=== PATIENT | female | born 1955 | race Caucasian/White ===

== ENCOUNTER 2023-07-29 20:18 | Inpatient (IN) | payer BC, MEDICARE ==
[~2023-07-29] VITALS: Ht 149.9 cm; Wt 63.6 kg
[2023-07-29 20:39] LABS: BASOPHILS # (AUTO) 0.1 X10'3 (0-0.2); BASOPHILS % (AUTO) 1.5 % (0-1); EOSINOPHILS # (AUTO) 0.2 X10'3 (0-0.9); EOSINOPHILS % (AUTO) 3.9 % (0-6); HEMATOCRIT 39.1 % (35.0-45.0); HEMOGLOBIN 13.2 g/dl (12.0-16.0); LYMPHOCYTES # (AUTO) 1.2 X10'3 (1.1-4.8); LYMPHOCYTES % (AUTO) 19.2 % (21-51); MEAN CORPUSCULAR HGB CONC 33.7 g/dL (33.0-36.5); MEAN PLATELET VOLUME 8.7 FL (7.4-10.4); MONOCYTES # (AUTO) 0.5 X10'3 (0-0.9); NEUTROPHILS # (AUTO) 4.1 X10'3 (1.8-7.7); NEUTROPHILS % (AUTO) 66.4 % (42-75); PLATELET COUNT 263 X10'3 (140-440); RED BLOOD COUNT 4.12 X10'6 (4.20-5.60); RED CELL DISTRIBUTION WIDTH 15.6 % (11.5-14.5); WHITE BLOOD COUNT 6.1 X10'3 (4.5-11.0)
[2023-07-29 20:53] LABS: ALANINE AMINOTRANSFERASE 21 U/L (12-78); ALBUMIN 3.7 G/DL (3.4-5.0); ALKALINE PHOSPHATASE 161 IU/L (46-116); ANION GAP 9 (8-16); ASPARTATE AMINO TRANSFERASE 21 U/L (10-37); BILIRUBIN,TOTAL 0.6 MG/DL (0.1-1.0); BLOOD UREA NITROGEN 12 MG/DL (7-18); BUN/CREATININE RATIO 11.4 (10.0-20.0); CALCIUM 8.9 MG/DL (8.5-10.1); CHLORIDE 101 MMOL/L (99-107); CREATININE 1.05 MG/DL (0.40-0.90); GLUCOSE 103 MG/DL (70-104); SODIUM 139 MMOL/L (135-145); TOTAL CARBON DIOXIDE 29.5 MMOL/L (24-32); TOTAL PROTEIN 7.5 G/DL (6.4-8.2); eCRCL 35 ML/MIN; eGFR 52 ML/MIN
[2023-07-29 21:02] LABS: PRO BRAIN NATRIURETIC PEPTIDE 547 PG/ML (0-125)
[2023-07-30] VITALS (9 sets, daily range): BP systolic 131–171; BP diastolic 85–102; PULSE 81–101; RESP 14–26; TEMP 97.9–98.2; O2SAT 94–100
[2023-07-30] MEDS ORDERED: bisacodyl 10mg suppository rectal RC PRN (02:15)
[2023-07-30] MEDS ORDERED: acetaminophen 325mg tablet PO PRN ×2 (02:15)
[2023-07-30] MEDS ORDERED: magnesium hydroxide 30ml (MOM) UD suspension PO PRN (02:15)
[2023-07-30] MEDS ORDERED: acetaminophen 650mg rectal suppository RC PRN (02:15)
[2023-07-30] MEDS ORDERED: morphine 2 MG/ML inj. syringe IV PRN (02:15)
[2023-07-30] MEDS ORDERED: ondansetron/PF 4mg/2ml inj IV PRN (02:15)
[2023-07-30] MEDS ORDERED: diphenhydrAMINE 25mg capsule PO PRN (02:15)
[2023-07-30] MEDS ORDERED: ondansetron 4mg rapidly disintigrating tab PO PRN (02:15)
[2023-07-30] MEDS ORDERED: mag hydrox/Alum hydrox/simeth 30ml oral suspension PO PRN (02:15)
[2023-07-30] MEDS ORDERED: diphenhydrAMINE 50 mg/ml inj IV PRN (02:15)
[2023-07-30] MEDS ORDERED: aminophylline 250mg/10ml inj. IV PRN (02:20)
[2023-07-30] MEDS ORDERED: nitroGLYCERIN 0.4mg SUBLingual tab SL PRN (02:20)
[2023-07-30] MEDS ORDERED: metoprolol tartrate 1mg/ml inj IV PRN (02:20)
[2023-07-30] MEDS ORDERED: regadenoson 0.4mg/5ml syringe IV PRN (02:20)
[2023-07-30] MEDS: sodium chloride 0.45% 1,000 ML IV SCH ×3 (02:43→22:15)
[2023-07-30] MEDS: pantoprazole 40mg Tablet.DR PO SCH ×2 (07:30→09:17)
[2023-07-30] MEDS: lisinopril 10 MG tablet PO SCH ×2 (08:00→10:37)
[2023-07-30] MEDS: atorvastatin 20mg tablet PO SCH ×2 (08:00→09:16)
[2023-07-30] MEDS: carVEDilol 3.125mg tablet PO SCH ×2 (08:00→20:00)
[2023-07-30 08:45] LABS: APTT 31 SECONDS (22-32); D-DIMER 0.34 MG/L FEU (0-0.50); PROTHROMBIN TIME 10.9 SECONDS (9.0-12.0)
[2023-07-30 09:09] LABS: PHOSPHORUS 4.4 MG/DL (2.3-4.5)
[2023-07-30] MEDS: aspirin 81mg tab.chew PO SCH ×2 (09:16→10:36)
[2023-07-30] MEDS: heparin, porcine 5000 units/ml vial SQ SCH ×2 (09:16→20:05)
[2023-07-30] MEDS: docusate sod 100mg capsule PO SCH ×3 (09:16→20:00)
[2023-07-30 09:20] LABS: HEMOGLOBIN A1C 5.3 % (4.5-6.2)
[2023-07-30] MEDS: nitroGLYCERIN 0.2mg/hour patch TD SCH (10:35)
[2023-07-30] MEDS: nicotine 14mg patch - 24hr TD SCH (10:37)
[2023-07-30] MEDS: HYDROcodone/acetaminophen 5mg/325mg tablet PO PRN (20:00)
[2023-07-30] MEDS ORDERED: temazepam 15mg capsule PO PRN (21:00)
[2023-07-31] MEDS: HYDROcodone/acetaminophen 5mg/325mg tablet PO PRN (06:05)
[2023-07-31 06:52] LABS: BASOPHILS # (AUTO) 0.1 X10'3 (0-0.2); BASOPHILS % (AUTO) 1.1 % (0-1); EOSINOPHILS # (AUTO) 0.2 X10'3 (0-0.9); EOSINOPHILS % (AUTO) 3.6 % (0-6); HEMATOCRIT 38.9 % (35.0-45.0); LYMPHOCYTES # (AUTO) 1.1 X10'3 (1.1-4.8); LYMPHOCYTES % (AUTO) 19.7 % (21-51); MEAN CORPUSCULAR HEMOGLOBIN 31.7 PG (27.0-31.0); MEAN CORPUSCULAR HGB CONC 33.3 g/dL (33.0-36.5); MEAN CORPUSCULAR VOLUME 95.2 FL (78-98); MEAN PLATELET VOLUME 8.8 FL (7.4-10.4); MONOCYTES # (AUTO) 0.6 X10'3 (0-0.9); MONOCYTES % (AUTO) 11.3 % (2-12); NEUTROPHILS # (AUTO) 3.5 X10'3 (1.8-7.7); NEUTROPHILS % (AUTO) 64.3 % (42-75); PLATELET COUNT 235 X10'3 (140-440); RED BLOOD COUNT 4.09 X10'6 (4.20-5.60); RED CELL DISTRIBUTION WIDTH 15.2 % (11.5-14.5); WHITE BLOOD COUNT 5.5 X10'3 (4.5-11.0)
[2023-07-31] MEDS: pantoprazole 40mg Tablet.DR PO SCH (07:30)
[2023-07-31 07:53] LABS: ALANINE AMINOTRANSFERASE 12 U/L (12-78); ALBUMIN 3.1 G/DL (3.4-5.0); ALBUMIN/GLOBULIN RATIO 0.9 (1.1-1.5); ALKALINE PHOSPHATASE 140 IU/L (46-116); ANION GAP 10 (8-16); ASPARTATE AMINO TRANSFERASE 19 U/L (10-37); BILIRUBIN,TOTAL 0.6 MG/DL (0.1-1.0); BLOOD UREA NITROGEN 12 MG/DL (7-18); BUN/CREATININE RATIO 10.8 (10.0-20.0); CALCIUM 8.8 MG/DL (8.5-10.1); CHLORIDE 103 MMOL/L (99-107); CHOL/HDL RATIO 2.4 (0.00-4.99); CHOLESTEROL 153 MG/DL (0-200); CREATININE 1.11 MG/DL (0.40-0.90); GLUCOSE 106 MG/DL (70-104); HDL CHOLESTEROL 65 MG/DL (35-60); LDL CHOLESTEROL 70 MG/DL (50-100); POTASSIUM 3.4 MMOL/L (3.5-5.1); SODIUM 141 MMOL/L (135-145); TOTAL PROTEIN 6.6 G/DL (6.4-8.2); TRIGLYCERIDES 61 MG/DL (20-135); eCRCL 34 ML/MIN; eGFR 49 ML/MIN
[2023-07-31 08:00] VITALS: PULSE 67
[2023-07-31] MEDS: atorvastatin 20mg tablet PO SCH (08:00)
[2023-07-31] MEDS: heparin, porcine 5000 units/ml vial SQ SCH (08:00)
[2023-07-31] MEDS: lisinopril 10 MG tablet PO SCH (08:00)
[2023-07-31] MEDS: docusate sod 100mg capsule PO SCH (08:00)
[2023-07-31] MEDS: nitroGLYCERIN 0.2mg/hour patch TD SCH (08:00)
[2023-07-31] MEDS: nicotine 14mg patch - 24hr TD SCH (08:00)
[2023-07-31] MEDS: aspirin 81mg tab.chew PO SCH (08:30)
== END 2023-07-31 12:50 | disposition home or self-care (01) | DRG 291 ==
LOC: ER 20:19 → ED HOLD 07-30 02:18 → PCU 3S 07-30 09:40
PROVIDERS: ADMIT Family Medicine; ATTEND Internal Medicine
PROC: 4A02XM4 Measurement of Cardiac Total Activity, External Approach (ICD-10-PCS; principal; 2023-07-30)
PROC: 3E033HZ Introduction of Radioactive Substance into Peripheral Vein, Percutaneous Approach (ICD-10-PCS; 2023-07-30)
DX: I13.0 Hypertensive heart and chronic kidney disease with heart failure and stage 1 through stage 4 chronic kidney disease, or unspecified chronic kidney disease (principal); I50.33 Acute on chronic diastolic (congestive) heart failure; N17.9 Acute kidney failure, unspecified; M34.9 Systemic sclerosis, unspecified; K08.89 Other specified disorders of teeth and supporting structures; G62.9 Polyneuropathy, unspecified; I83.93 Asymptomatic varicose veins of bilateral lower extremities; N18.9 Chronic kidney disease, unspecified; Z72.0 Tobacco use; Z82.49 Family history of ischemic heart disease and other diseases of the circulatory system
CPT/HCPCS: 36415; 71045; 78452; 80053; 80061; 83036; 83735; 83880; 84100; 84484; 85025; 85379; 85610; 85730; 93017; 99285; A6258; A9500; G0378; J1644; J2785; J3490